=== PATIENT | male | born 1980 | race African-American/Black ===

== ENCOUNTER 2016-11-01 16:07 | Emergency (ER) | payer OTHER ==
[~2016-11-01] VITALS: Ht 170.2 cm; Wt 80.7 kg
[2016-11-01] MEDS ORDERED: NORFLEX100 MG PO (17:53)
[2016-11-01] MEDS ORDERED: MOBIC7.5 MG PO (17:53)
[2016-11-01 18:07] VITALS: BP 142/98
== END 2016-11-01 18:10 | disposition home or self-care (01) ==
LOC: ER 16:07
DX: S16.1XXA Strain of muscle, fascia and tendon at neck level, initial encounter (principal); R51 Headache; F10.99 Alcohol use, unspecified with unspecified alcohol-induced disorder; V89.2XXA Person injured in unspecified motor-vehicle accident, traffic, initial encounter; Y93.9 Activity, unspecified; Y92.9 Unspecified place or not applicable; Y99.9 Unspecified external cause status